=== PATIENT | male | born 1995 | race African-American/Black ===

== ENCOUNTER 2016-08-28 07:45 | Emergency (ER) | payer OTHER ==
[~2016-08-28] VITALS: Ht 170.2 cm; Wt 77.1 kg
[2016-08-28] MEDS ORDERED: IV NORMAL SALINE 1000ML BAG 1,000 ML IV SCH (08:25)
[2016-08-28] MEDS ORDERED: ONDANSETRON PF 4 MG/2 ML VIAL. IV ONE (08:30)
[2016-08-28] MEDS ORDERED: FAMOTIDINE 20 MG/2 ML VIAL IVP ONE (08:30)
[2016-08-28] MEDS: fentaNYL PF VIAL 100 MCG/2 ML VIAL IV PRN ×2 (08:37→09:23)
[2016-08-28 08:40] LABS: BASO # 0.1 x10^3/uL (0.0-0.2); BASO % 0 % (0-3); BILIRUBIN,URINE NEGATIVE (NEG); EOS % 0 % (0-3); GLUCOSE,URINE NEGATIVE (NEG); HEMATOCRIT 50.6 % (39.0-53.0); HEMOGLOBIN 17.4 g/dL (13.0-17.5); LYMPH # 1.2 x10^3/uL (1.0-4.8); LYMPH % 8 % (24-48); MEAN CORPUSCULAR HEMOGLOBIN 30 pg (25-35); MEAN CORPUSCULAR HGB CONC 34 g/dL (31-37); MEAN CORPUSCULAR VOLUME 87 fL (79-100); MONO % 5 % (0-9); NEUT % 87 % (31-73); NITRITE,URINE NEGATIVE (NEG); PLATELET COUNT 232 x10^3/uL (140-400); PROTEIN,URINE 30 mg/dL (NEG-TRACE); RED BLOOD COUNT 5.83 x10^6/uL (4.30-5.70); RED CELL DISTRIBUTION WIDTH 13.4 % (11.5-14.5); UROBILINOGEN,URINE 0.2 mg/dL (0.2 mg/dL); WHITE BLOOD COUNT 15.7 x10^3/uL (4.0-11.0)
[2016-08-28 08:51] LABS: CALCIUM 10.6 mg/dL (8.5-10.1); CREATININE 1.7 mg/dL (0.7-1.3); GFR 63.1
--- NOTE | 2016-08-28 08:51 | PHYS DOC ---
Past Medical History Past Medical History: No Pertinent History Past Surgical History: Other Additional Past Surgical Histo: CIRCUMCISION Alcohol Use: None Drug Use: None Adult General Chief Complaint Chief Complaint: ABDOMINAL PAIN HPI HPI Patient is a 20 year old male who presents with complaint of abdominal pain and vomiting. Patient states his symptoms started 3 days ago and have been constant since then. Patient states that he has had multiple episodes of vomiting and has not been able to keep down solids or liquids. Patient states last a few episodes have produced small amounts of bile. Patient denies any blood in his vomit. Patient denies any exposure to spoiled food or any sick contacts. Patient has not had any history of similar symptoms. Patient denies any significant past medical history. Patient has tried Pepto-Bismol with no relief in symptoms. Patient rates his pain currently as 8 out of 10 and states that is localized to his epigastrium and right upper quadrant. Patient denies radiation of pain into his back or chest. Review of Systems Review of Systems Constitutional: Denies fever or chills [] Eyes: Denies change in visual acuity, redness, or eye pain [] HENT: Denies nasal congestion or sore throat [] Respiratory: Denies cough or shortness of breath [] Cardiovascular: Denies chest pain or edema [] GI: Abdominal pain, nausea, vomiting, denies bloody stools or diarrhea [] : Denies dysuria or hematuria [] Musculoskeletal: Denies back pain or joint pain [] Integument: Denies rash or skin lesions [] Neurologic: Denies headache, focal weakness or sensory changes [] Current Medications Current Medications Current Medications Medications (Trade) Dose Ordered Sig/Adalberto Start Time Stop Time Status Last Admin Dose Admin Famotidine (Pepcid) 20 mg 1X ONCE 08/28/16 08:30 08/28/16 08:31 DC 08/28/16 08:38 20 MG Fentanyl Citrate (Fentanyl 2ml Vial) 50 mcg PRN Q15MIN PRN 08/28/16 08:30 08/28/16 11:29 DC 08/28/16 09:23 50 MCG Info (Do NOT chart on this entry -- for MONITORING) 1 each PRN DAILY PRN 08/28/16 09:30 08/28/16 11:29 DC Iohexol (Omnipaque 300 Mg/ml) 75 ml 1X ONCE 08/28/16 09:30 08/28/16 09:31 DC 08/28/16 09:29 75 ML Multi-Ingredient Mouthwash/Gargle (Gi Cocktail Single Dose) 15 ml 1X ONCE 08/28/16 10:15 08/28/16 10:16 DC 08/28/16 10:10 15 ML Ondansetron HCl (Zofran) 4 mg 1X ONCE 08/28/16 08:30 08/28/16 08:31 DC 08/28/16 08:35 4 MG Sodium Chloride 1,000 ml @ 1,000 mls/hr Q1H 08/28/16 08:25 08/28/16 09:24 DC 08/28/16 08:34 1,000 MLS/HR Allergies Allergies Allergies Coded Allergies Type Severity Reaction Last Updated Verified No Known Drug Allergies 08/28/16 No Physical Exam Physical Exam Constitutional: Alert, afebrile, appears in moderate discomfort. [] HENT: Normocephalic, atraumatic, bilateral external ears normal, oropharynx moist, no oral exudates, nose normal. [] Eyes: PERRLA, EOMI, conjunctiva normal, no discharge. [] Neck: Normal range of motion, no tenderness, supple, no stridor. [] Cardiovascular:Heart rate regular rhythm, no murmur [] Lungs & Thorax: Bilateral breath sounds clear to auscultation [] Abdomen: Bowel sounds normal, soft, epigastric and right upper quadrant tenderness to palpation, no guarding or rebound tenderness, no masses, no pulsatile masses. [] Skin: Warm, dry, no erythema, no rash. [] Back: No tenderness, no CVA tenderness. [] Extremities: No tenderness, no cyanosis, no clubbing, ROM intact, no edema. [] Neurologic: Alert and oriented X 3, normal motor function, normal sensory function, no focal deficits noted. [] Current Patient Data Vital Signs Vital Signs Date Time Temp Pulse Resp B/P (MAP) Pulse Ox O2 Delivery O2 Flow Rate FiO2 08/28/16 11:25 55 16 132/62 (85) 98 Room Air 08/28/16 08:02 98.7 98.7 Lab Values Laboratory Tests Test 08/28/16 08:10 White Blood Count 15.7 x10^3/uL (4.0-11.0) H Red Blood Count 5.83 x10^6/uL (4.30-5.70) H Hemoglobin 17.4 g/dL (13.0-17.5) Hematocrit 50.6 % (39.0-53.0) Mean Corpuscular Volume 87 fL (79-100) Mean Corpuscular Hemoglobin 30 pg (25-35) Mean Corpuscular Hemoglobin Concent 34 g/dL (31-37) Red Cell Distribution Width 13.4 % (11.5-14.5) Platelet Count 232 x10^3/uL (140-400) Neutrophils (%) (Auto) 87 % (31-73) H Lymphocytes (%) (Auto) 8 % (24-48) L Monocytes (%) (Auto) 5 % (0-9) Eosinophils (%) (Auto) 0 % (0-3) Basophils (%) (Auto) 0 % (0-3) Neutrophils # (Auto) 13.6 x10^3uL (1.8-7.7) H Lymphocytes # (Auto) 1.2 x10^3/uL (1.0-4.8) Monocytes # (Auto) 0.8 x10^3/uL (0.0-1.1) Eosinophils # (Auto) 0.0 x10^3/uL (0.0-0.7) Basophils # (Auto) 0.1 x10^3/uL (0.0-0.2) Segmented Neutrophils % 83 % (35-66) H Band Neutrophils % 6 % (0-9) Lymphocytes % 7 % (24-48) L Monocytes % 4 % (0-10) Platelet Estimate Adequate (ADEQUATE) Urine Collection Type Void Urine Color Yellow Urine Clarity Clear Urine pH 6.0 Urine Specific [place] 1.020 Urine Protein 30 mg/dL (NEG-TRACE) Urine Glucose (UA) Negative mg/dL (NEG) Urine Ketones (Stick) 15 mg/dL (NEG) Urine Blood Trace (NEG) Urine Nitrite Negative (NEG) Urine Bilirubin Negative (NEG) Urine Urobilinogen Dipstick 0.2 mg/dL (0.2 mg/dL) Urine Leukocyte Esterase Trace (NEG) Urine RBC 3-5 /HPF (0-2) Urine WBC 5-10 /HPF (0-4) Urine Bacteria Few /HPF (0-FEW) Urine Hyaline Casts Few /HPF Urine Mucus Marked /LPF Sodium Level 141 mmol/L (136-145) Potassium Level 4.0 mmol/L (3.5-5.1) Chloride Level 100 mmol/L (98-107) Carbon Dioxide Level 26 mmol/L (21-32) Anion Gap 15 (6-14) H Blood Urea Nitrogen 21 mg/dL (8-26) Creatinine 1.7 mg/dL (0.7-1.3) H Estimated GFR (Cockcroft-Gault) 63.1 BUN/Creatinine Ratio 12 (6-20) Glucose Level 115 mg/dL (70-99) H Calcium Level 10.6 mg/dL (8.5-10.1) H Total Bilirubin 1.6 mg/dL (0.2-1.0) H Aspartate Amino Transferase (AST) 71 U/L (15-37) H Alanine Aminotransferase (ALT) 76 U/L (16-63) H Alkaline Phosphatase 75 U/L (46-116) Total Protein 9.0 g/dL (6.4-8.2) H Albumin 5.2 g/dL (3.4-5.0) H Albumin/Globulin Ratio 1.4 (1.0-1.7) Lipase 96 U/L (73-393) Urine Opiates Screen Pos (NEG) Urine Methadone Screen Neg (NEG) Urine Barbiturates Neg (NEG) Urine Phencyclidine Screen Neg (NEG) Urine Amphetamine/Methamphetamine Neg (NEG) Urine Benzodiazepines Screen Neg (NEG) Urine Cocaine Screen Neg (NEG) Urine Cannabinoids Screen Pos (NEG) Urine Ethyl Alcohol Neg (NEG) Laboratory Tests 08/28/16 08:10 Laboratory Tests 08/28/16 08:10 EKG EKG Not performed [] Radiology/Procedures Radiology/Procedures [facility] [address] [place] [address] IMAGING REPORT Signed PATIENT: BRAYAN MERCADO ACCOUNT: [id number] : 1995 LOCATION: ER AGE: 20 SEX: M EXAM STATUS: REG ER ORD. PHYSICIAN: CHECO GRACIA MD REASON: right upper quadrant abdominal pain for 3 days PROCEDURE: ABDOMEN LTD Right upper quadrant abdominal ultrasound, 08/28/2016: History: Right upper quadrant pain and cramping The gallbladder is within normal limits in size. There is no sonographic evidence of cholelithiasis. The gallbladder wall is not thickened. No bile duct dilatation is seen. The visualized portions of the liver and right kidney are unremarkable. The pancreas was poorly delineated due to overlying bowel. IMPRESSION: No significant gallbladder abnormality is detected. DICTATED and SIGNED BY: XIOMY BAH MD DATE: 08/28/16 0900 CC: CHECO GRACIA MD; NO PCP ~ [facility] [address] [place] [address] IMAGING REPORT Signed PATIENT: BRAYAN MERCADO ACCOUNT: [id number] : 1995 LOCATION: ER AGE: 20 SEX: M EXAM STATUS: REG ER ORD. PHYSICIAN: CHECO GRACIA MD REASON: abdominal pain, leukocytosis, elevated transaminases PROCEDURE: CT ABD PELV W/ IV CONTRST ONLY CT of the abdomen and pelvis with contrast, 08/28/2016: History: Abdominal pain, vomiting, leukocytosis, elevated liver enzymes Multidetector CT imaging was performed following an IV bolus injection of iodinated contrast material. No oral contrast material was administered for this study. No hepatic abnormality is detected. The gallbladder is unremarkable. No pancreatic abnormality is seen. The spleen is of normal size. The kidneys are unremarkable. The kidneys show no evidence of obstruction or mass. No adrenal abnormality is detected. No abdominal or pelvic adenopathy is seen. The bowel loops are not dilated. The appendix is visualized and shows no abnormality. No free fluid or free air is evident in the abdomen or pelvis. IMPRESSION: No acute abdominal or pelvic abnormality is detected. PQRS Compliance Statement: One or more of the following individualized dose reduction techniques were utilized for this examination: 1. Automated exposure control 2. Adjustment of the mA and/or kV according to patient size 3. Use of iterative reconstruction technique DICTATED and SIGNED BY: XIOMY BAH MD DATE: 08/28/16 0940 CC: CHECO GRACIA MD; NO PCP ~ [] Course & Med Decision Making Course & Med Decision Making Pertinent Labs and Imaging studies reviewed. (See chart for details) The patient was given IV fluids, fentanyl, Zofran, Pepcid. Patient's initial ultrasound showed no abnormalities. Patient had leukocytosis with mild elevation in liver function testing. Patient received CT imaging which did not show any further acute findings. Patient was given oral GI cocktail after results of testing received. On reevaluation, the patient states his pain has resolved and he feels much better at this time. The patient's symptoms are suspected to be due to gastritis though etiology is unclear at this time. Due to presence of mildly abnormal liver function testing, it was recommended that the patient follow-up in one week with his primary doctor for repeat metabolic panel to ensure resolution of lab abnormalities. Patient will be discharged with prescription for Zofran, Pepcid, and Bentyl. Advised return to the emergency department for any worsening symptoms. Patient voiced understanding and in agreement with treatment plan. Dragon Disclaimer Dragon Disclaimer This electronic medical record was generated, in whole or in part, using a voice recognition dictation system. Departure Departure Impression: Primary Impression: Abdominal pain Additional Impression: Nausea and vomiting Disposition: 01 HOME, SELF-CARE Condition: IMPROVED Referrals: NO PCP (PCP) Patient Instructions: Abdominal Pain (Nonspecific), Nausea and Vomiting Additional Instructions: Follow-up in one week for repeat complete metabolic panel blood work including liver function tests as these were found to be mildly abnormal and may be due to your persistent vomiting. Continue use of medications as needed for symptoms. Return to the emergency department for any worsening symptoms. Scripts Dicyclomine Hcl (BENTYL) 10 Mg Capsule 1 CAP PO TID, #30 CAP 0 Refills Prov: CHECO GRACIA MD 08/28/16 Ondansetron (ZOFRAN ODT) 4 Mg Tab.rapdis 1 TAB SL Q8HRS Y for NAUSEA/VOMITING, #15 TAB Prov: CHECO GRACIA MD 08/28/16 Famotidine (PEPCID) 20 Mg Tablet 20 MG PO BID, #30 TAB Prov: CHECO GRACIA MD 08/28/16 Problem Qualifiers Primary Impression: Abdominal pain Abdominal location: right upper quadrant Qualified Codes: R10.11 - Right upper quadrant pain Additional Impression: Nausea and vomiting Vomiting type: unspecified Vomiting Intractability: non-intractable Qualified Codes: R11.2 - Nausea with vomiting, unspecified CHECO GRACIA MD August 28, 2016 08:51
[2016-08-28 08:52] LABS: BARBITURATES NEG (NEG); BENZODIAZEPINES NEG (NEG); CANNABINOIDS POS (NEG); COCAINE NEG (NEG); METHADONE NEG (NEG); OPIATES POS (NEG); PHENCYCLIDINE NEG (NEG)
[2016-08-28 08:55] LABS: BACTERIA,URINE FEW /HPF (0-FEW)
[2016-08-28 08:57] LABS: ALBUMIN 5.2 g/dL (3.4-5.0); ALBUMIN/GLOBULIN RATIO 1.4 (1.0-1.7); TOTAL BILIRUBIN 1.6 mg/dL (0.2-1.0)
--- NOTE | 2016-08-28 09:06 | RAD ---
Right upper quadrant abdominal ultrasound, 08/28/2016: History: Right upper quadrant pain and cramping The gallbladder is within normal limits in size. There is no sonographic evidence of cholelithiasis. The gallbladder wall is not thickened. No bile duct dilatation is seen. The visualized portions of the liver and right kidney are unremarkable. The pancreas was poorly delineated due to overlying bowel. IMPRESSION: No significant gallbladder abnormality is detected.
[2016-08-28] MEDS ORDERED: LIDO:MAALOX:DONNATAL 1:1:1 15 ML SINGLE DOSE ONE (09:19)
[2016-08-28] MEDS ORDERED: IOHEXOL 300 MG/ML 75 ML VIAL IV ONE (09:30)
[2016-08-28] MEDS ORDERED: CONTRAST GIVEN MC PRN (09:30)
--- NOTE | 2016-08-28 09:51 | RAD ---
CT of the abdomen and pelvis with contrast, 08/28/2016: History: Abdominal pain, vomiting, leukocytosis, elevated liver enzymes Multidetector CT imaging was performed following an IV bolus injection of iodinated contrast material. No oral contrast material was administered for this study. No hepatic abnormality is detected. The gallbladder is unremarkable. No pancreatic abnormality is seen. The spleen is of normal size. The kidneys are unremarkable. The kidneys show no evidence of obstruction or mass. No adrenal abnormality is detected. No abdominal or pelvic adenopathy is seen. The bowel loops are not dilated. The appendix is visualized and shows no abnormality. No free fluid or free air is evident in the abdomen or pelvis. IMPRESSION: No acute abdominal or pelvic abnormality is detected. PQRS Compliance Statement: One or more of the following individualized dose reduction techniques were utilized for this examination: 1. Automated exposure control 2. Adjustment of the mA and/or kV according to patient size 3. Use of iterative reconstruction technique
[2016-08-28 10:01] LABS: PLT ESTIMATE ADEQUATE (ADEQUATE)
[2016-08-28] MEDS ORDERED: LIDO:MAALOX:DONNATAL 1:1:1 15 ML SINGLE DOSE SWSW ONE (10:15)
[2016-08-28] MEDS ORDERED: ONDA4TAB10 SL (10:52)
[2016-08-28] MEDS ORDERED: DICY10CA53 PO (10:52)
[2016-08-28] MEDS ORDERED: FAMO-63 PO (10:52)
[2016-08-28 11:25] VITALS: BP 132/62
[2016-08-29] MEDS ORDERED: HYDR-971 PO (10:38)
== END 2016-08-28 11:29 | disposition home or self-care (01) ==
LOC: ER 07:50
DX: R10.13 Epigastric pain (principal); R11.2 Nausea with vomiting, unspecified; R10.11 Right upper quadrant pain
CPT/HCPCS: 36415; 74177; 76705; 80053; 80305; 81001; 83690; 85007; 85027; 87086; 96361; 96374; 96375; 96376; 99285; J2405; J3010; J7030; Q9967; S0028; G0481

== ENCOUNTER 2016-08-29 08:34 | Emergency (ER) | payer OTHER ==
[~2016-08-29] VITALS: Ht 170.2 cm; Wt 77.1 kg
[~2016-08-29 08:34] MED LIST: DICY10CA53 PO; FAMO-63 PO; ONDA4TAB10 SL
--- NOTE | 2016-08-29 08:39 | PHYS DOC ---
Past Medical History Past Medical History: No Pertinent History Past Surgical History: Other Additional Past Surgical Histo: CIRCUMCISION Alcohol Use: None Drug Use: None Adult General Chief Complaint Chief Complaint: ABDOMINAL PAIN HPI HPI Patient is a 20 year old male presenting to the emergency department for continued abdominal pain. He says that the nausea and vomiting is resolved with Zofran. Patient says the abdominal pain was in the right upper quadrant yesterday when he was seen in the emergency room but now he feels it is more in his periumbilical area. He says the pain is sharp and burning and can radiate up into his chest and he says it hurts to take deep breaths and to move his torso. He was seen yesterday and hasn't CT and ultrasound that were negative and was discharged with Zofran and Bentyl Prilosec. He says the nausea is improved with the pain is not. Review of Systems Review of Systems Constitutional: Denies fever or chills [] Eyes: Denies change in visual acuity, redness, or eye pain [] HENT: Denies nasal congestion or sore throat [] Respiratory: Denies cough or shortness of breath [] Cardiovascular: No additional information not addressed in HPI [] GI: + abdominal pain. No nausea, vomiting, bloody stools or diarrhea [] : Denies dysuria or hematuria [] Musculoskeletal: Denies back pain or joint pain [] Integument: Denies rash or skin lesions [] Neurologic: Denies headache, focal weakness or sensory changes [] Current Medications Current Medications Current Medications Medications (Trade) Dose Ordered Sig/[facility] Start Time Stop Time Status Last Admin Dose Admin Hydromorphone HCl (Dilaudid) 1 mg 1X ONCE 08/29/16 10:00 08/29/16 10:01 DC 08/29/16 10:30 1 MG Ketorolac Tromethamine (Toradol) 30 mg 1X ONCE 08/29/16 09:15 08/29/16 09:19 DC 08/29/16 09:19 30 MG Multi-Ingredient Mouthwash/Gargle (Gi Cocktail Single Dose) 15 ml 1X ONCE 08/29/16 09:00 08/29/16 09:01 DC 08/29/16 09:07 15 ML Ondansetron HCl (Zofran) 8 mg 1X ONCE 08/29/16 09:15 08/29/16 09:19 DC 08/29/16 09:20 8 MG Pantoprazole Sodium (Protonix Vial) 40 mg 1X ONCE 08/29/16 10:00 08/29/16 10:01 DC 08/29/16 10:30 40 MG Sodium Chloride 1,000 ml @ 1,000 mls/hr 1X ONCE 08/29/16 09:00 08/29/16 09:59 DC 08/29/16 09:07 1,000 MLS/HR Allergies Allergies Allergies Coded Allergies Type Severity Reaction Last Updated Verified No Known Drug Allergies 08/28/16 No Physical Exam Physical Exam Constitutional: Well developed, well nourished, no acute distress, non-toxic appearance. [] HENT: Normocephalic, atraumatic, bilateral external ears normal, oropharynx moist, no oral exudates, nose normal. [] Eyes: PERRLA, EOMI, conjunctiva normal, no discharge. [] Neck: Normal range of motion, no tenderness, supple, no stridor. [] Cardiovascular:Heart rate regular rhythm, no murmur [] Lungs & Thorax: Bilateral breath sounds clear to auscultation [] Abdomen: Bowel sounds normal, soft, + periumbilical tenderness, no rebound or guarding, no masses, no pulsatile masses. [] Skin: Warm, dry, no erythema, no rash. [] Back: No tenderness, no CVA tenderness. [] Extremities: No tenderness, no cyanosis, no clubbing, ROM intact, no edema. [] Neurologic: Alert and oriented X 3, normal motor function, normal sensory function, no focal deficits noted. [] Current Patient Data Vital Signs Vital Signs Date Time Temp Pulse Resp B/P (MAP) Pulse Ox O2 Delivery O2 Flow Rate FiO2 08/29/16 10:30 17 08/29/16 08:43 98.3 55 99 Room Air 98.3 Lab Values Laboratory Tests Test 08/29/16 09:00 White Blood Count 10.4 x10^3/uL (4.0-11.0) Red Blood Count 5.54 x10^6/uL (4.30-5.70) Hemoglobin 16.9 g/dL (13.0-17.5) Hematocrit 47.2 % (39.0-53.0) Mean Corpuscular Volume 85 fL (79-100) Mean Corpuscular Hemoglobin 31 pg (25-35) Mean Corpuscular Hemoglobin Concent 36 g/dL (31-37) Red Cell Distribution Width 13.2 % (11.5-14.5) Platelet Count 228 x10^3/uL (140-400) Neutrophils (%) (Auto) 68 % (31-73) Lymphocytes (%) (Auto) 23 % (24-48) L Monocytes (%) (Auto) 8 % (0-9) Eosinophils (%) (Auto) 1 % (0-3) Basophils (%) (Auto) 1 % (0-3) Neutrophils # (Auto) 7.0 x10^3uL (1.8-7.7) Lymphocytes # (Auto) 2.4 x10^3/uL (1.0-4.8) Monocytes # (Auto) 0.8 x10^3/uL (0.0-1.1) Eosinophils # (Auto) 0.1 x10^3/uL (0.0-0.7) Basophils # (Auto) 0.1 x10^3/uL (0.0-0.2) Sodium Level 141 mmol/L (136-145) Potassium Level 3.7 mmol/L (3.5-5.1) Chloride Level 101 mmol/L (98-107) Carbon Dioxide Level 26 mmol/L (21-32) Anion Gap 14 (6-14) Blood Urea Nitrogen 15 mg/dL (8-26) Creatinine 1.3 mg/dL (0.7-1.3) Estimated GFR (Cockcroft-Gault) 86.0 BUN/Creatinine Ratio 12 (6-20) Glucose Level 101 mg/dL (70-99) H Calcium Level 9.9 mg/dL (8.5-10.1) Total Bilirubin 2.2 mg/dL (0.2-1.0) H Aspartate Amino Transferase (AST) 66 U/L (15-37) H Alanine Aminotransferase (ALT) 64 U/L (16-63) H Alkaline Phosphatase 67 U/L (46-116) Total Protein 8.3 g/dL (6.4-8.2) H Albumin 4.8 g/dL (3.4-5.0) Albumin/Globulin Ratio 1.4 (1.0-1.7) Lipase 111 U/L (73-393) Laboratory Tests 08/29/16 09:00 Laboratory Tests 08/29/16 09:00 EKG EKG [] Radiology/Procedures Radiology/Procedures [] Course & Med Decision Making Course & Med Decision Making Very nice 20-year-old gentleman unfortunately is having some issues with abdominal pain nausea and vomiting. Based off for his pain is at and his symptom description I think that this is likely a viral gastroenteritis that is lingering. He has a quite benign abdominal exam she has no pain in his right upper quadrant or over McBurney's and he has no rebound or guarding. Patient is able to tolerate by mouth with no difficulty here and he said his pain is coming down after 2 doses of Dilaudid. Repeat abdominal exam is benign. His bilirubin is mildly elevated from yesterday which is of unknown significance. Transaminitis is similar and his white blood cell count is down. I do not think that any repeat imaging or other further imaging would be helpful at this point given he appears well with benign physical exam. He may have an ulcer or other gastrointestinal pathology that needs to be worked up by a GI doctor. I see no reason for inpatient admission at this time so we'll discharged with [place] for pain and told him to drink plenty of fluids and come back to the ER sooner with any worsening pain fevers vomiting or other general concerns. Patient is aware and agreeable with plan and verbalized understanding of the above plan. Dragon Disclaimer Dragon Disclaimer This electronic medical record was generated, in whole or in part, using a voice recognition dictation system. Departure Departure Impression: Primary Impression: Abdominal pain Additional Impressions: Transaminitis Elevated bilirubin Disposition: 01 HOME, SELF-CARE Condition: GOOD Referrals: NO PCP (PCP) ÁNGEL HERNANDEZ MD Patient Instructions: Abdominal Pain (Nonspecific) Additional Instructions: MOSTLY DRINK LIQUIDS TODAY. STOP THE BENTYL. AVOID NSAIDS SUCH IBUPROFEN AND ALLEVE. IF YOU ARE FEELING BETTER YOU CAN TRY EATING SOME SOFT FOODS. FOLLOW WITH A PCP/GI DOCTOR. COME BACK TO THE ED WITH WORSENING PAIN, FEVERS, VOMITING OR OTHER GENERAL CONCERNS. THANK YOU! Scripts Hydrocodone/Apap 5-325 (NORCO 5-325 TABLET) 1 Each Tablet 1 TAB PO PRN Q6HRS Y for PAIN, #20 TAB 0 Refills Prov: TOBIAS LUGO DO 08/29/16 Problem Qualifiers Primary Impression: Abdominal pain Abdominal location: periumbilical Qualified Codes: R10.33 - Periumbilical pain TOBIAS LUGO DO August 29, 2016 08:39
[2016-08-29 08:43] VITALS: BP 152/95
[2016-08-29] MEDS ORDERED: HYDROmorphone 2 MG/ML VIAL IV ONE ×2 (09:00→10:00)
[2016-08-29] MEDS ORDERED: LIDO:MAALOX:DONNATAL 1:1:1 15 ML SINGLE DOSE SWSW ONE (09:00)
[2016-08-29] MEDS ORDERED: IV NORMAL SALINE 1000ML BAG 1,000 ML IV ONE (09:00)
[2016-08-29] MEDS ORDERED: KETOROLAC TROMETHAMINE 30 MG/ML INJ. IV ONE (09:15)
[2016-08-29] MEDS ORDERED: ONDANSETRON PF 4 MG/2 ML VIAL. IV ONE (09:15)
[2016-08-29 09:20] LABS: CALCIUM 9.9 mg/dL (8.5-10.1); CREATININE 1.3 mg/dL (0.7-1.3); POTASSIUM 3.7 mmol/L (3.5-5.1)
[2016-08-29 09:26] LABS: ALBUMIN 4.8 g/dL (3.4-5.0); ALBUMIN/GLOBULIN RATIO 1.4 (1.0-1.7); TOTAL BILIRUBIN 2.2 mg/dL (0.2-1.0); TOTAL PROTEIN 8.3 g/dL (6.4-8.2)
[2016-08-29 09:53] LABS: BASO # 0.1 x10^3/uL (0.0-0.2); BASO % 1 % (0-3); EOS % 1 % (0-3); HEMATOCRIT 47.2 % (39.0-53.0); HEMOGLOBIN 16.9 g/dL (13.0-17.5); LYMPH # 2.4 x10^3/uL (1.0-4.8); LYMPH % 23 % (24-48); MEAN CORPUSCULAR HEMOGLOBIN 31 pg (25-35); MEAN CORPUSCULAR HGB CONC 36 g/dL (31-37); MEAN CORPUSCULAR VOLUME 85 fL (79-100); MONO % 8 % (0-9); NEUT % 68 % (31-73); PLATELET COUNT 228 x10^3/uL (140-400); RED BLOOD COUNT 5.54 x10^6/uL (4.30-5.70); RED CELL DISTRIBUTION WIDTH 13.2 % (11.5-14.5); WHITE BLOOD COUNT 10.4 x10^3/uL (4.0-11.0)
[2016-08-29] MEDS ORDERED: PANTOPRAZOLE IV PUSH 40 MG VIAL. IVP ONE (10:00)
[2016-08-29] MEDS ORDERED: HYDR-971 PO (10:38)
== END 2016-08-29 10:49 | disposition home or self-care (01) ==
LOC: ER 08:34
DX: R10.33 Periumbilical pain (principal); R10.11 Right upper quadrant pain; R74.0 Nonspecific elevation of levels of transaminase and lactic acid dehydrogenase [LDH]; R17 Unspecified jaundice; Z98.890 Other specified postprocedural states
CPT/HCPCS: 36415; 80053; 83690; 85027; 96361; 96374; 96375; 96376; 99285; C9113; J1170; J1885; J2405; J7030

== ENCOUNTER 2017-11-13 13:49 | Emergency (ER) | payer OTHER ==
[~2017-11-13] VITALS: Ht 165.1 cm; Wt 59.0 kg
[~2017-11-13 13:49] MED LIST changes: +HYDR-971 PO
[2017-11-13] MEDS ORDERED: IV NORMAL SALINE 1000ML BAG 1,000 ML IV ONE (14:00)
[2017-11-13] MEDS ORDERED: PANTOPRAZOLE IV PUSH 40 MG VIAL. IVP ONE (14:00)
[2017-11-13] MEDS ORDERED: KETOROLAC 30 MG/ML VIAL. IV ONE (14:00)
[2017-11-13] MEDS ORDERED: ONDANSETRON PF 4 MG/2 ML VIAL. IV ONE (14:00)
--- NOTE | 2017-11-13 14:07 | PHYS DOC ---
Past Medical History Past Medical History: No Pertinent History Past Surgical History: Other Additional Past Surgical Histo: circumcision in highschool Alcohol Use: None Drug Use: Marijuana Adult General Chief Complaint Chief Complaint: ABDOMINAL PAIN HPI HPI Patient is a 22 year old male with no significant medical history who presents today with nausea and vomiting that began this morning. Patient denies any fever , denies any diarrhea, he states he has slight epigastric pain. Patient is restless getting up and spitting in the sink/basin every few seconds, moaning and groaning. He states he is a chronic marijuana user. Review of Systems Review of Systems Constitutional: Denies fever or chills [] Eyes: Denies change in visual acuity, redness, or eye pain [] HENT: Denies nasal congestion or sore throat [] Respiratory: Denies cough or shortness of breath [] Cardiovascular: No additional information not addressed in HPI [] GI: Reports epigastric abdominal pain, nausea and vomiting, denies bloody stools or diarrhea [] : Denies dysuria or hematuria [] Musculoskeletal: Denies back pain or joint pain [] Integument: Denies rash or skin lesions [] Neurologic: Denies headache, focal weakness or sensory changes [] All other systems were reviewed and found to be within normal limits, except as documented in this note. Current Medications Current Medications Current Medications Medications (Trade) Dose Ordered Sig/Adalberto Start Time Stop Time Status Last Admin Dose Admin Ciprofloxacin (Cipro) 500 mg 1X ONCE 11/13/17 16:45 11/13/17 16:46 DC Fentanyl Citrate (Fentanyl 2ml Vial) 50 mcg 1X ONCE 11/13/17 16:15 11/13/17 16:16 DC 11/13/17 16:17 50 MCG Haloperidol Lactate (Haldol Inj) 5 mg 1X ONCE 11/13/17 14:15 11/13/17 14:16 DC 11/13/17 14:24 5 MG Info (CONTRAST GIVEN -- Rx MONITORING) 1 each PRN DAILY PRN 11/13/17 16:00 11/15/17 15:59 Iohexol (Omnipaque 300 Mg/ml) 75 ml 1X ONCE 11/13/17 16:00 11/13/17 16:01 DC 11/13/17 16:23 75 ML Ketorolac Tromethamine (Toradol) 30 mg 1X ONCE 11/13/17 14:00 11/13/17 14:01 DC 11/13/17 14:00 30 MG Metronidazole (Flagyl) 500 mg 1X ONCE 11/13/17 16:45 11/13/17 16:46 DC Multi-Ingredient Mouthwash/Gargle (Gi Cocktail) 20 ml 1X ONCE 11/13/17 14:15 11/13/17 14:16 DC 11/13/17 14:20 20 ML Ondansetron HCl (Zofran) 4 mg 1X ONCE 11/13/17 14:00 11/13/17 14:01 DC 11/13/17 14:00 4 MG Pantoprazole Sodium (PROTONIX VIAL for IV PUSH) 40 mg 1X ONCE 11/13/17 14:00 11/13/17 14:01 DC 11/13/17 14:20 40 MG Sodium Chloride 1,000 ml @ 1,000 mls/hr 1X ONCE 11/13/17 14:00 11/13/17 14:59 DC 11/13/17 14:16 1,000 MLS/HR Allergies Allergies Allergies Coded Allergies Type Severity Reaction Last Updated Verified No Known Drug Allergies 08/28/16 No Physical Exam Physical Exam Constitutional: Well developed, well nourished, no acute distress, non-toxic appearance. [] HENT: Normocephalic, atraumatic, bilateral external ears normal, oropharynx moist, no oral exudates, nose normal. [] Eyes: PERRLA, EOMI, conjunctiva normal, no discharge. [] Neck: Normal range of motion, no tenderness, supple, no stridor. [] Cardiovascular:Heart rate regular rhythm, no murmur [] Lungs & Thorax: Bilateral breath sounds clear to auscultation [] Abdomen: Bowel sounds normal, soft, no tenderness, no masses, no pulsatile masses. [] Skin: Warm, dry, no erythema, no rash. [] Back: No tenderness, no CVA tenderness. [] Extremities: No tenderness, no cyanosis, no clubbing, ROM intact, no edema. [] Neurologic: Alert and oriented X 3, normal motor function, normal sensory function, no focal deficits noted. [] Psychologic: Restless, up-and-down spitting in a basin, moaning and groaning Current Patient Data Vital Signs Vital Signs Date Time Temp Pulse Resp B/P (MAP) Pulse Ox O2 Delivery O2 Flow Rate FiO2 11/13/17 14:55 61 19 144/74 (97) 100 Room Air 11/13/17 14:00 97.9 97.9 Lab Values Laboratory Tests Test 11/13/17 14:25 11/13/17 15:36 White Blood Count 11.6 x10^3/uL (4.0-11.0) H Red Blood Count 5.53 x10^6/uL (4.30-5.70) Hemoglobin 16.9 g/dL (13.0-17.5) Hematocrit 48.8 % (39.0-53.0) Mean Corpuscular Volume 88 fL (79-100) Mean Corpuscular Hemoglobin 31 pg (25-35) Mean Corpuscular Hemoglobin Concent 35 g/dL (31-37) Red Cell Distribution Width 13.0 % (11.5-14.5) Platelet Count 226 x10^3/uL (140-400) Neutrophils (%) (Auto) 77 % (31-73) H Lymphocytes (%) (Auto) 16 % (24-48) L Monocytes (%) (Auto) 4 % (0-9) Eosinophils (%) (Auto) 3 % (0-3) Basophils (%) (Auto) 0 % (0-3) Neutrophils # (Auto) 8.9 x10^3uL (1.8-7.7) H Lymphocytes # (Auto) 1.9 x10^3/uL (1.0-4.8) Monocytes # (Auto) 0.5 x10^3/uL (0.0-1.1) Eosinophils # (Auto) 0.3 x10^3/uL (0.0-0.7) Basophils # (Auto) 0.0 x10^3/uL (0.0-0.2) Sodium Level 140 mmol/L (136-145) Potassium Level 3.5 mmol/L (3.5-5.1) Chloride Level 105 mmol/L (98-107) Carbon Dioxide Level 25 mmol/L (21-32) Anion Gap 10 (6-14) Blood Urea Nitrogen 5 mg/dL (8-26) L Creatinine 1.0 mg/dL (0.7-1.3) Estimated GFR (Cockcroft-Gault) 114.1 BUN/Creatinine Ratio 5 (6-20) L Glucose Level 133 mg/dL (70-99) H Calcium Level 9.8 mg/dL (8.5-10.1) Total Bilirubin 0.7 mg/dL (0.2-1.0) Aspartate Amino Transferase (AST) 13 U/L (15-37) L Alanine Aminotransferase (ALT) 13 U/L (16-63) L Alkaline Phosphatase 57 U/L (46-116) Total Protein 7.7 g/dL (6.4-8.2) Albumin 4.5 g/dL (3.4-5.0) Albumin/Globulin Ratio 1.4 (1.0-1.7) Lipase 111 U/L (73-393) Ethyl Alcohol Level < 10 mg/dL (0-10) Urine Collection Type Void Urine Color Yellow Urine Clarity Clear Urine pH 7.0 Urine Specific [place] 1.020 Urine Protein Negative mg/dL (NEG-TRACE) Urine Glucose (UA) Negative mg/dL (NEG) Urine Ketones (Stick) 40 mg/dL (NEG) Urine Blood Negative (NEG) Urine Nitrite Negative (NEG) Urine Bilirubin Negative (NEG) Urine Urobilinogen Dipstick 1.0 mg/dL (0.2 mg/dL) Urine Leukocyte Esterase Negative (NEG) Urine RBC 0 /HPF (0-2) Urine WBC 0 /HPF (0-4) Urine Squamous Epithelial Cells None /LPF Urine Bacteria 0 /HPF (0-FEW) Urine Mucus Mod /LPF Urine Opiates Screen Pos (NEG) Urine Methadone Screen Neg (NEG) Urine Barbiturates Neg (NEG) Urine Phencyclidine Screen Neg (NEG) Urine Amphetamine/Methamphetamine Neg (NEG) Urine Benzodiazepines Screen Pos (NEG) Urine Cocaine Screen Neg (NEG) Urine Cannabinoids Screen Pos (NEG) Urine Ethyl Alcohol Neg (NEG) Laboratory Tests 11/13/17 14:25 Laboratory Tests 11/13/17 14:25 EKG EKG [] Radiology/Procedures Radiology/Procedures []PROCEDURE: CT ABD PELV W/ IV CONTRST ONLY CT abdomen and pelvis with contrast HISTORY: Lower abdominal pain, nausea and vomiting. TECHNIQUE: Helical CT imaging of the abdomen and pelvis with 75 mL Omnipaque 300 intravenous contrast. COMPARISON: CT abdomen and pelvis August 28, 2016. Abdomen findings: Kidneys, adrenal glands, pancreas, spleen, liver and gallbladder are unremarkable. No abdominal fluid or adenopathy. No bowel obstruction. There is edematous wall thickening of the distal small bowel the lower abdomen leading up to the ileocecal junction there is diffuse: Edematous wall thickening and edema and mild mesenteric hypervascularity. Appendix is negative. No abdominal fluid or adenopathy. Vessels are unremarkable. Chronic L4 pars and articularis defects. Lumbar disc bulges. Pelvis findings: Rectosigmoid colon wall thickening and edema. Bladder, prostate and bones are unremarkable. No fluid or adenopathy. IMPRESSION: 1. Distal enteritis and diffuse colitis. This could be an infectious process or inflammatory bowel disease. 2. The appendix is negative. Exposure: One or more of the following individualized dose reduction techniques were utilized for this examination: 1. Automated exposure control 2. Adjustment of the mA and/or kV according to patient size 3. Use of iterative reconstruction technique Electronically signed by: Angelina Tafoya MD (11/13/2017 4:27 PM) [facility] [place]CTATED and SIGNED BY: ANGELINA TAFOYA MD DATE: 11/13/171621 Course & Med Decision Making Course & Med Decision Making Pertinent Labs and Imaging studies reviewed. (See chart for details) This is a 22-year-old male patient presented to the ED today with nausea and vomiting that began this morning. Patient is restless getting up and spitting in the sink/basin moaning and [id number] CBC with a WBC of 11.6, CMP with no acute findings, CT of the abdomen and pelvic was noted for distal enteritis and diffuse colitis, this could be infectious process or inflammatory bowel disease. Spoke to patient about results. Offered him admission. Patient states he would like to go home. He was started on Cipro and Flagyl in the ED. Discharged home with Cipro, Flagyl, hydrocodone, Zofran, promethazine and dicyclomine. Provided GI for follow-up. Instructed to return to the ED at any point symptoms worsen. Dragon Disclaimer Dragon Disclaimer This electronic medical record was generated, in whole or in part, using a voice recognition dictation system. Departure Departure Impression: Primary Impression: Colitis Disposition: 01 HOME, SELF-CARE Condition: STABLE Referrals: NO PCP (PCP) ÁNGEL HERNANDEZ MD follow up in the next 1-7 days Patient Instructions: Colitis Additional Instructions: You were evaluated in the emergency room and noted to have colitis. 2 antibiotics, ensure you complete them. Take the pain medicines as needed for pain. Take the nausea medicine as needed for nausea vomiting. Follow-up with the provided specialist in the next 1-[address] on the pain medications. Come back to the emergency room at any point symptoms worsen. Scripts Dicyclomine Hcl (DICYCLOMINE HCL) 20 Mg Tablet 1 TAB PO TID, #30 TAB 1 Refill Prov: SKYLAR MUNGUIA APRN 11/13/17 Promethazine Hcl (PROMETHAZINE HCL) 25 Mg Tablet 1 TAB PO PRN Q6HRS, #20 TAB Prov: SKYLAR MUNGUIA APRN 11/13/17 Hydrocodone/Apap 5-325 (NORCO 5-325 TABLET) 1 Each Tablet 1-2 TAB PO Q6HRS PRN for PAIN, #16 TAB Prov: SKYLAR MUNGUIA APRN 11/13/17 Metronidazole (FLAGYL) 500 Mg Tablet 500 MG PO TID, #30 TAB Prov: SKYLAR MUNGUIA APRN 11/13/17 Ciprofloxacin Hcl (CIPRO) 500 Mg Tablet 1 TAB PO BID, #20 TAB Prov: SKYLAR MUNGUIA APRN 11/13/17 SKYLAR MUNGUIA APRN Nov 13, 2017 14:07
[2017-11-13] MEDS ORDERED: LIDO:MAALOX 1:1 20 ML SINGLE DOSE. SWSW ONE (14:15)
[2017-11-13] MEDS ORDERED: HALOPERIDOL LACTATE 5 MG/ML VIAL. IVP ONE (14:15)
[2017-11-13 14:30] LABS: BASO % 0 % (0-3); EOS # 0.3 x10^3/uL (0.0-0.7); EOS % 3 % (0-3); HEMATOCRIT 48.8 % (39.0-53.0); HEMOGLOBIN 16.9 g/dL (13.0-17.5); LYMPH # 1.9 x10^3/uL (1.0-4.8); LYMPH % 16 % (24-48); MEAN CORPUSCULAR HEMOGLOBIN 31 pg (25-35); MEAN CORPUSCULAR HGB CONC 35 g/dL (31-37); MEAN CORPUSCULAR VOLUME 88 fL (79-100); MONO # 0.5 x10^3/uL (0.0-1.1); MONO % 4 % (0-9); NEUT # 8.9 x10^3uL (1.8-7.7); NEUT % 77 % (31-73); PLATELET COUNT 226 x10^3/uL (140-400); RED BLOOD COUNT 5.53 x10^6/uL (4.30-5.70); WHITE BLOOD COUNT 11.6 x10^3/uL (4.0-11.0)
[2017-11-13 14:45] LABS: CALCIUM 9.8 mg/dL (8.5-10.1); GFR 114.1; POTASSIUM 3.5 mmol/L (3.5-5.1)
[2017-11-13 14:51] LABS: ALBUMIN 4.5 g/dL (3.4-5.0); ALBUMIN/GLOBULIN RATIO 1.4 (1.0-1.7); TOTAL BILIRUBIN 0.7 mg/dL (0.2-1.0); TOTAL PROTEIN 7.7 g/dL (6.4-8.2)
[2017-11-13 14:55] VITALS: BP 144/74
[2017-11-13 15:47] LABS: BILIRUBIN,URINE NEGATIVE (NEG); COLOR,URINE YELLOW; NITRITE,URINE NEGATIVE (NEG); PROTEIN,URINE NEGATIVE (NEG-TRACE)
[2017-11-13 15:53] LABS: AMPHETAMINE/METHAMPHETAMINE NEG (NEG); BARBITURATES NEG (NEG); BENZODIAZEPINES POS (NEG); CANNABINOIDS POS (NEG); COCAINE NEG (NEG); METHADONE NEG (NEG); OPIATES POS (NEG); PHENCYCLIDINE NEG (NEG)
[2017-11-13 15:58] LABS: CLARITY,URINE CLEAR
[2017-11-13 16:00] LABS: BACTERIA,URINE 0 /HPF (0-FEW); RBC,URINE 0 /HPF (0-2); WBC,URINE 0 /HPF (0-4)
[2017-11-13] MEDS ORDERED: IOHEXOL 300 MG/ML 100ML VIAL. IV ONE (16:00)
[2017-11-13] MEDS ORDERED: CONTRAST GIVEN. MC PRN (16:00)
[2017-11-13] MEDS ORDERED: fentaNYL PF VIAL 100 MCG/2 ML VIAL IV ONE (16:15)
--- NOTE | 2017-11-13 16:31 | RAD ---
CT abdomen and pelvis with contrast HISTORY: Lower abdominal pain, nausea and vomiting. TECHNIQUE: Helical CT imaging of the abdomen and pelvis with 75 mL Omnipaque 300 intravenous contrast. COMPARISON: CT abdomen and pelvis August 28, 2016. Abdomen findings: Kidneys, adrenal glands, pancreas, spleen, liver and gallbladder are unremarkable. No abdominal fluid or adenopathy. No bowel obstruction. There is edematous wall thickening of the distal small bowel the lower abdomen leading up to the ileocecal junction there is diffuse: Edematous wall thickening and edema and mild mesenteric hypervascularity. Appendix is negative. No abdominal fluid or adenopathy. Vessels are unremarkable. Chronic L4 pars and articularis defects. Lumbar disc bulges. Pelvis findings: Rectosigmoid colon wall thickening and edema. Bladder, prostate and bones are unremarkable. No fluid or adenopathy. IMPRESSION: 1. Distal enteritis and diffuse colitis. This could be an infectious process or inflammatory bowel disease. 2. The appendix is negative. Exposure: One or more of the following individualized dose reduction techniques were utilized for this examination: 1. Automated exposure control 2. Adjustment of the mA and/or kV according to patient size 3. Use of iterative reconstruction technique Electronically signed by: Stewart Tafoya MD (11/13/2017 4:27 PM) [facility] – [place]
[2017-11-13] MEDS ORDERED: CIPROFLOXACIN HCL 250 MG TABLET. PO ONE (16:45)
[2017-11-13] MEDS ORDERED: metroNIDAZOLE 500 MG TABLET PO ONE (16:45)
[2017-11-13] MEDS ORDERED: CIPR500T94 PO (16:51)
[2017-11-13] MEDS ORDERED: DICY20TA3 PO (16:51)
[2017-11-13] MEDS ORDERED: PROM25TA10 PO (16:51)
[2017-11-13] MEDS ORDERED: METR500T PO (16:51)
[2017-11-13] MEDS ORDERED: HYDR-971 PO (16:51)
== END 2017-11-13 17:00 | disposition home or self-care (01) ==
LOC: ER 13:49
DX: K52.9 Noninfective gastroenteritis and colitis, unspecified (principal); F12.10 Cannabis abuse, uncomplicated
CPT/HCPCS: 36415; 74177; 80053; 80307; 81001; 83690; 85025; 96361; 96374; 96375; 99285; C9113; G0480; J1630; J1885; J2405; J3010; J7030; Q9967; G0479

== ENCOUNTER 2017-11-16 07:06 | Emergency (ER) | payer OTHER ==
[~2017-11-16] VITALS: Ht 175.3 cm; Wt 59.0 kg
[~2017-11-16 07:06] MED LIST changes: +CIPR500T94 PO; +DICY20TA3 PO; +METR500T PO; +PROM25TA10 PO
[2017-11-16] MEDS ORDERED: IV NORMAL SALINE 1000ML BAG 1,000 ML IV SCH (07:25)
--- NOTE | 2017-11-16 07:29 | PHYS DOC ---
Past Medical History Past Medical History: No Pertinent History Past Surgical History: Other Additional [facility] Alcohol Use: None Drug Use: Marijuana Adult General Chief Complaint Chief Complaint: ABDOMINAL PAIN HPI HPI Patient is a 22-year-old male who presents to the emergency department for evaluation. He states that for the past week or so he has been having generalized abdominal discomfort, along with multiple episodes of vomiting. He has not had any bloody emesis, and has not had any bloody stools or diarrhea. He states he did have one small bowel movement over the past few days, which was nonbloody. He was seen in the emergency department 3 days ago, and diagnosed with colitis. Lab results as well as imaging tests, and the ER provider note have all been reviewed. The patient states that since leaving the emergency department he has just not felt any better. He has not gotten worse, but he has not improved. He states that he has been unable to tolerate his medications as he vomits every time he takes his medication. He states he has vomited 10 times in the past 24 hours. He denies any bloody emesis. He has not had any definite fevers but has had some episodes of sweatiness he states, even though he is not outside in the heat. There are no alleviating, or exacerbating factors to his symptoms. Review of Systems Review of Systems Constitutional: Reports subjective fevers [] Eyes: Denies change in visual acuity, redness, or eye pain [] HENT: Denies nasal congestion or sore throat [] Respiratory: Denies cough or shortness of breath [] Cardiovascular: The patient denies any shortness of breath, chest pain, palpitations, or orthopnea [] GI: No additional information not addressed in HPI [] : Denies dysuria or hematuria [] Musculoskeletal: Denies back pain or joint pain [] Integument: Denies rash or skin lesions [] Neurologic: Denies headache, focal weakness or sensory changes [] Endocrine: Denies polyuria or polydipsia [] All other systems were reviewed and found to be within normal limits, except as documented in this note. Current Medications Current Medications Current Medications Medications (Trade) Dose Ordered Sig/Adalberto Start Time Stop Time Status Last Admin Dose Admin Ondansetron HCl (Zofran) 4 mg 1X ONCE 11/16/17 08:00 11/16/17 08:01 DC 11/16/17 07:59 4 MG Sodium Chloride 1,000 ml @ 1,000 mls/hr 1X ONCE 11/16/17 08:15 11/16/17 09:14 DC 11/16/17 08:54 1,000 MLS/HR Allergies Allergies Allergies Coded Allergies Type Severity Reaction Last Updated Verified No Known Drug Allergies 08/28/16 No Physical Exam Physical Exam PHYSICAL EXAM: CONSTITUTIONAL: Well developed, well nourished, nontoxic appearing HEAD: normocephalic, atraumatic EENT: PERRL, EOMI. Conjunctivae normal color, sclerae non-icteric; moist mucous membranes. NECK: Supple, non-tender; no meningismus. LUNGS: Lungs CTA, breathing even and unlabored. Normal air movement. HEART: Regular rate and rhythm, no murmur CHEST: No deformity; non-tender ABDOMEN: The abdomen is soft, there is very mild tenderness to palpation in the left mid and lower abdomen, without rebound or guarding, the remainder of the abdomen is soft and non-tender, no masses or bruits. Normal bowel sounds are present. EXTREM: Normal ROM; no deformity, no calf tenderness. Normal pulses palpable in all extremities. There is no pedal edema. SKIN: No rash; no diaphoresis NEURO: Alert; normal speech and cognition; CN's grossly intact; strength grossly intact without focal deficit. BACK: No CVA TTP. Current Patient Data Vital Signs Vital Signs Date Time Temp Pulse Resp B/P (MAP) Pulse Ox O2 Delivery O2 Flow Rate FiO2 11/16/17 08:56 61 18 152/90 (110) 99 Room Air 11/16/17 07:15 99.4 99.4 Lab Values Laboratory Tests Test 11/16/17 07:35 White Blood Count 12.3 x10^3/uL (4.0-11.0) H Red Blood Count 6.09 x10^6/uL (4.30-5.70) H Hemoglobin 18.9 g/dL (13.0-17.5) H Hematocrit 53.2 % (39.0-53.0) H Mean Corpuscular Volume 87 fL (79-100) Mean Corpuscular Hemoglobin 31 pg (25-35) Mean Corpuscular Hemoglobin Concent 35 g/dL (31-37) Red Cell Distribution Width 13.3 % (11.5-14.5) Platelet Count 235 x10^3/uL (140-400) Neutrophils (%) (Auto) 82 % (31-73) H Lymphocytes (%) (Auto) 13 % (24-48) L Monocytes (%) (Auto) 5 % (0-9) Eosinophils (%) (Auto) 0 % (0-3) Basophils (%) (Auto) 0 % (0-3) Neutrophils # (Auto) 10.1 x10^3uL (1.8-7.7) H Lymphocytes # (Auto) 1.5 x10^3/uL (1.0-4.8) Monocytes # (Auto) 0.7 x10^3/uL (0.0-1.1) Eosinophils # (Auto) 0.0 x10^3/uL (0.0-0.7) Basophils # (Auto) 0.0 x10^3/uL (0.0-0.2) Sodium Level 138 mmol/L (136-145) Potassium Level 4.5 mmol/L (3.5-5.1) Chloride Level 97 mmol/L (98-107) L Carbon Dioxide Level 30 mmol/L (21-32) Anion Gap 11 (6-14) Blood Urea Nitrogen 16 mg/dL (8-26) Creatinine 1.2 mg/dL (0.7-1.3) Estimated GFR (Cockcroft-Gault) 92.5 BUN/Creatinine Ratio 13 (6-20) Glucose Level 99 mg/dL (70-99) Lactic Acid Level 1.6 mmol/L (0.4-2.0) Calcium Level 9.6 mg/dL (8.5-10.1) Total Bilirubin 1.4 mg/dL (0.2-1.0) H Aspartate Amino Transferase (AST) 21 U/L (15-37) Alanine Aminotransferase (ALT) 14 U/L (16-63) L Alkaline Phosphatase 65 U/L (46-116) Total Protein 8.5 g/dL (6.4-8.2) H Albumin 5.0 g/dL (3.4-5.0) Albumin/Globulin Ratio 1.4 (1.0-1.7) Lipase 109 U/L (73-393) Laboratory Tests 11/16/17 07:35 Laboratory Tests 11/16/17 07:35 EKG EKG [] Radiology/Procedures Radiology/Procedures [] Course & Med Decision Making Course & Med Decision Making Pertinent Labs and recent Imaging studies reviewed. (See chart for details) [9:50 AM: The patient's condition remained stable. He had a normal bowel movement in the emergency department and is feeling better at this time. I did discuss hospitalization ] with him, but neither of us feel he needs to be hospitalized at this time. I'll give the patient Zofran, to use prior to taking his antibiotics and I did discuss eating a small amount of food prior to attempting to take his antibiotics. He expressed understanding of his need to return to the emergency department if he has continued intolerance of food or medication. He has not vomited in the emergency department. I discussed importance of GI follow-up and return precautions. Dragon Disclaimer Dragon Disclaimer This electronic medical record was generated, in whole or in part, using a voice recognition dictation system. Departure Departure Impression: Primary Impression: Colitis Additional Impression: Abdominal pain Disposition: 01 HOME, SELF-CARE Condition: STABLE Referrals: ÁNGEL HERNANDEZ MD Patient Instructions: Abdominal Pain, Colitis, Nausea and Vomiting Scripts Ondansetron (ZOFRAN ODT) 4 Mg Tab.rapdis 1 TAB SL Q8HRS, #15 TAB Prov: TOBIAS FRANCISCO MD 11/16/17 Problem Qualifiers TOBIAS FRANCISCO MD Nov 16, 2017 07:28
[2017-11-16 07:51] LABS: BASO % 0 % (0-3); EOS % 0 % (0-3); HEMATOCRIT 53.2 % (39.0-53.0); HEMOGLOBIN 18.9 g/dL (13.0-17.5); LYMPH # 1.5 x10^3/uL (1.0-4.8); LYMPH % 13 % (24-48); MEAN CORPUSCULAR HEMOGLOBIN 31 pg (25-35); MEAN CORPUSCULAR HGB CONC 35 g/dL (31-37); MEAN CORPUSCULAR VOLUME 87 fL (79-100); MONO # 0.7 x10^3/uL (0.0-1.1); MONO % 5 % (0-9); NEUT # 10.1 x10^3uL (1.8-7.7); NEUT % 82 % (31-73); PLATELET COUNT 235 x10^3/uL (140-400); RED BLOOD COUNT 6.09 x10^6/uL (4.30-5.70); RED CELL DISTRIBUTION WIDTH 13.3 % (11.5-14.5); WHITE BLOOD COUNT 12.3 x10^3/uL (4.0-11.0)
[2017-11-16 07:58] LABS: CALCIUM 9.6 mg/dL (8.5-10.1); CREATININE 1.2 mg/dL (0.7-1.3); GFR 92.5; POTASSIUM 4.5 mmol/L (3.5-5.1)
[2017-11-16] MEDS ORDERED: ONDANSETRON PF 4 MG/2 ML VIAL. IV ONE (08:00)
[2017-11-16 08:02] LABS: ALBUMIN/GLOBULIN RATIO 1.4 (1.0-1.7); TOTAL BILIRUBIN 1.4 mg/dL (0.2-1.0); TOTAL PROTEIN 8.5 g/dL (6.4-8.2)
[2017-11-16] MEDS ORDERED: IV NORMAL SALINE 1000ML BAG 1,000 ML IV ONE (08:15)
[2017-11-16] MEDS ORDERED: ONDA4TAB10 SL (09:53)
[2017-11-16 10:07] VITALS: BP 151/89
== END 2017-11-16 10:10 | disposition home or self-care (01) ==
LOC: ER 07:06
DX: K52.9 Noninfective gastroenteritis and colitis, unspecified (principal)
CPT/HCPCS: 36415; 80053; 83605; 83690; 85025; 96361; 96374; 99284; J2405; J7030; 96360; 99285-25